=== PATIENT | male | born 1970 | race Caucasian/White ===

== ENCOUNTER 2017-10-30 12:23 | Emergency (ER) | payer OTHER, SELFPAY | END 2017-10-30 14:51 | disposition home or self-care (01) | PROVIDERS: Emergency Provider Nurse Practitioner Family; Family Provider Emergency Medicine; Visit Provider Nurse Practitioner Family | DX: S96.912A Strain of unspecified muscle and tendon at ankle and foot level, left foot, initial encounter (principal); X50.1XXA Overexertion from prolonged static or awkward postures, initial encounter; Y93.39 Activity, other involving climbing, rappelling and jumping off; Y92.89 Other specified places as the place of occurrence of the external cause; Z88.0 Allergy status to penicillin | CPT/HCPCS: 73610; 73630; 99202 ==

== ENCOUNTER → 2020-09-09 17:52 | Outpatient (CLI) | payer OTHER, SELFPAY ==
[2020-09-09 18:54] LABS: Basophils # 0.1 K/mm3 (0-0.2); Eosinophils # 0.4 K/mm3 (0.0-0.4); Eosinophils % 5.5 % (0.1-12.0); Hematocrit 39.7 % (42.0-52.0); Hemoglobin 13.2 g/dL (14.1-18.0); Lymphocytes # 2.3 K/mm3 (0.7-4.5); Mean Corpuscular HGB Conc 33.3 g/dL (31.8-35.4); Mean Corpuscular Hemoglobin 29.3 pg (27.0-31.2); Mean Corpuscular Volume 88.2 fl (80-94); Mean Platelet Volume 9.2 fl (7.4-10.4); Monocytes # 0.5 K/mm3 (0.1-1.0); Monocytes % 5.7 % (1.7-9.3); Neutrophils # 4.6 K/mm3 (1.8-7.8); Neutrophils % 58.8 % (37.0-80.0); Platelet Count 331 K/mm3 (142-424); White Blood Count 7.9 K/mm3 (4.8-10.8)
[2020-09-09 19:10] LABS: Alanine Aminotransferase 16 U/L (12-78); Albumin Level 4.8 g/dl (3.5-5.0); Albumin/Globulin Ratio 1.6 (1.1-1.8); Alkaline Phosphatase 111 U/L (38-126); Anion Gap 13.9 mEq/L (5-15); Aspartate Amino Transferase 29 U/L (17-59); Bilirubin,Total 0.4 mg/dl (0.2-1.3); Blood Urea Nitrogen 15 mg/dl (9-20); Carbon Dioxide 30 mmol/L (22.0-30.0); Chloride 100 mmol/L (98-107); Estimated Glomerular Filt Rate 102 ml/min (>60); GFR (African American) 123 ML/MIN (>60); Glucose 92 mg/dl (74-100); Potassium 3.9 mmoL/L (3.5-5.1); Sodium 140 mmol/L (136-145); Total Protein,Serum 7.8 g/dl (6.3-8.2)
[2020-09-09 19:27] LABS: Free T4 (Free Thyroxine) 0.85 ng/dl (0.78-2.19)
[2020-09-09 19:28] LABS: 25-OH Vitamin D, Total 43.8 ng/mL (30-100)
[2020-09-09 19:41] LABS: Thyroid Stimulating Hormone 1.76 uIU/mL (0.465-4.68)
[2020-09-09 20:31] LABS: Erythrocyte Sedimentation Rate 21 mm/hr (0-20)
[2020-09-11 08:19] LABS: Hep A Ab, IgM Negative (Negative); Hep A Ab, Total Negative (Negative); Hep B Core Ab, Total Negative (Negative)
[2020-09-11 10:31] LABS: Hep B Surface Ab, Qual Non Reactive (.); Hepatitis C Antibody <0.1 s/co ratio (0.0-0.9)
== END ==
PROVIDERS: Visit Provider Emergency Medicine
DX: R53.83 Other fatigue (principal); E55.9 Vitamin D deficiency, unspecified; D64.9 Anemia, unspecified; Z72.0 Tobacco use
CPT/HCPCS: 80053; 82306; 84439; 84443; 85025; 85651; 86704; 86706; 86708; 87380

== ENCOUNTER 2021-07-04 10:57 | Emergency (ER) | payer OTHER, SELFPAY ==
[2021-07-04 10:58] VITALS: BP 161/100; PULSE 78; RESP 16; TEMP 36.8; O2SAT 98; BMI 21.9
--- NOTE | 2021-07-04 11:03 | PC.NURSE ---
Calling conrad olivia due to injuries and circumstances.
--- NOTE | 2021-07-04 11:10 | XR_ITS ---
PROCEDURE INFORMATION: Exam: XR Pelvis Exam date and time: 07/04/2021 11:10 AM Age: 51 years old Clinical indication: Injury or trauma; Fall; Blunt trauma (contusions or hematomas); Bilateral; Pelvic region; Patient HX: Patient fell in [place], trauma alert. TECHNIQUE: Imaging protocol: XR pelvis. Views: 1 or 2 view. COMPARISON: No relevant prior studies available. FINDINGS: Bones/joints: Unremarkable. No acute fracture. Soft tissues: Unremarkable. IMPRESSION: No acute findings.
--- NOTE | 2021-07-04 11:10 | CT_ITS ---
PROCEDURE INFORMATION: Exam: CT Head Without Contrast Exam date and time: 07/04/2021 11:10 AM Age: 51 years old Clinical indication: Injury or trauma; Fall; Blunt trauma (contusions or hematomas); Consciousness not specified; Injury details: Patient fell in [place], trauma TECHNIQUE: Imaging protocol: Computed tomography of the head without contrast. Radiation optimization: All CT scans at this facility use at least one of these dose optimization techniques: automated exposure control; mA and/or kV adjustment per patient size (includes targeted exams where dose is matched to clinical indication); or iterative reconstruction. COMPARISON: No relevant prior studies available. FINDINGS: Brain: No significant acute hemorrhage. Trace extra-axial hemorrhage adjacent to the left parietal fracture may be present. Unremarkable white matter. No mass effect. Cerebral ventricles: No ventriculomegaly. Paranasal sinuses: Visualized sinuses are unremarkable. No fluid levels. Mastoid air cells: Visualized mastoid air cells are well aerated. Orbital cavity: There is dysconjugate gaze. Bones/joints: There is a depressed and comminuted fracture of the right parietal bone. There is intracranial gas adjacent to the parietal bone fracture. Soft tissues: There is left parietal soft tissue swelling and subcutaneous gas. IMPRESSION: 1. Depressed left parietal bone fracture with pneumocephalus. 2. There is no significant focus of acute intracranial hemorrhage or mass effect.
--- NOTE | 2021-07-04 11:10 | XR_ITS ---
PROCEDURE INFORMATION: Exam: XR Chest Exam date and time: 07/04/2021 11:10 AM Age: 51 years old Clinical indication: Injury or trauma; Fall; Blunt trauma (contusions or hematomas); Patient HX: Patient fell in [place], trauma. TECHNIQUE: Imaging protocol: XR of the chest. Views: 1 view. COMPARISON: CT CERVICAL SPINE WO CON 07/04/2021 12:03 PM FINDINGS: Lungs: Unremarkable. No consolidation. Pleural spaces: Unremarkable. No pleural effusion. No pneumothorax. Heart/Mediastinum: Unremarkable. No cardiomegaly. Bones/joints: Unremarkable. IMPRESSION: No acute findings.
--- NOTE | 2021-07-04 11:10 | CT_ITS ---
PROCEDURE INFORMATION: Exam: CT Cervical Spine Without Contrast Exam date and time: 07/04/2021 11:10 AM Age: 51 years old Clinical indication: Injury or trauma; Fall; Blunt trauma; Injury details: Patient fell in [place], trauma. TECHNIQUE: Imaging protocol: Computed tomography images of the cervical spine without contrast. Radiation optimization: All CT scans at this facility use at least one of these dose optimization techniques: automated exposure control; mA and/or kV adjustment per patient size (includes targeted exams where dose is matched to clinical indication); or iterative reconstruction. COMPARISON: CT HEAD/BRAIN WO CON 07/04/2021 12:01 PM FINDINGS: Bones/joints: There is a 28 degree levoscoliosis. There is no subluxation. There is a nondisplaced fracture of the left lateral mass of C2 (23/3). There is rotation of C1 upon C2 without subluxation. Discs/Spinal canal/Neural foramina: There is loss of disc space height throughout most focally at C5-C6, related to degenerative disc disease. Thyroid: Thyroid is lobulated and slightly enlarged. Lungs: There is centrilobular emphysematous change in the lung apices. Vasculature: There is atherosclerotic disease of carotid arteries not fully assessed. Soft tissues: Unremarkable. IMPRESSION: 1. Nondisplaced fracture left lateral at mass C2. 2. Rotation of C1 on C2 without widening of the pre dens space. Continued clinical follow-up recommended. If an injury to the transverse ligament is suspected, a follow-up MRI is recommended.
--- NOTE | 2021-07-04 11:13 | PC.NURSE ---
CPD at bedside
--- NOTE | 2021-07-04 11:28 | PC.NURSE ---
BLEEDING CONTROLLED IN ED TRIAGE FOR PATIENT
[2021-07-04 11:33] VITALS: BP 142/92; PULSE 73; O2SAT 100
--- NOTE | 2021-07-04 11:36 | PC.NURSE ---
Assisted MD in cleaning and dressing wound. C-Collar appropriately applied and pt states that his chin feels like it is bruised as well.
[2021-07-04 11:51] VITALS: BP 150/92; PULSE 73; RESP 13; O2SAT 100
[2021-07-04 11:54] LABS: Basophils # 0.1 K/mm3 (0-0.2); Basophils % 0.5 % (0.1-2.0); Eosinophils # 0.1 K/mm3 (0.0-0.4); Eosinophils % 1.2 % (0.1-12.0); Hematocrit 41.1 % (42.0-52.0); Hemoglobin 13.4 g/dL (14.1-18.0); Lymphocytes # 1.4 K/mm3 (0.7-4.5); Lymphocytes % 15.5 % (10-50); Mean Corpuscular HGB Conc 32.6 g/dL (31.8-35.4); Mean Corpuscular Hemoglobin 28.7 pg (27.0-31.2); Mean Corpuscular Volume 88.1 fl (80-94); Mean Platelet Volume 8.1 fl (7.4-10.4); Monocytes # 0.4 K/mm3 (0.1-1.0); Neutrophils # 7.3 K/mm3 (1.8-7.8); Neutrophils % 78.8 % (37.0-80.0); POC Glucose,Bedside 122 (70-110); Platelet Count 288 K/mm3 (142-424); Red Blood Count 4.66 M/mm3 (4.60-6.20); Red Cell Distribution Width 13.9 % (11.5-17.5); White Blood Count 9.3 K/mm3 (4.8-10.8)
[2021-07-04 11:59] LABS: Chloride 103 mmol/L (98-107)
[2021-07-04 12:00] LABS: Potassium 4.3 mmoL/L (3.5-5.1); Sodium 140 mmol/L (136-145)
--- NOTE | 2021-07-04 12:01 | PC.NURSE ---
Pt with rad
[2021-07-04 12:02] LABS: Blood Urea Nitrogen 15 mg/dl (9-20); Creatinine Clearance Estimated 67 mL/min (50-200); Estimated Glomerular Filt Rate 78 ml/min (>60); GFR (African American) 95 ML/MIN (>60)
[2021-07-04 12:03] LABS: Alanine Aminotransferase 15 U/L (12-78); Albumin Level 4.5 g/dl (3.5-5.0); Albumin/Globulin Ratio 1.5 (1.1-1.8); Alkaline Phosphatase 99 U/L (38-126); Anion Gap 12.3 mEq/L (5-15); Aspartate Amino Transferase 27 U/L (17-59); Bilirubin,Total 0.3 mg/dl (0.2-1.3); Calcium 9.2 mg/dl (8.4-10.2); Carbon Dioxide 29 mmol/L (22.0-30.0); Globulin 3.1 g/dL (1.3-3.2); Glucose 125 mg/dl (74-100); Total Protein,Serum 7.6 g/dl (6.3-8.2)
--- NOTE | 2021-07-04 12:12 | [facility].EDGENADL ---
ED Disposition Clinical Impression: Open skull fracture Qualifiers: Encounter type: initial encounter Skull bone/location: parietal bone Qualified Code(s): S02.0XXB - Fracture of vault of skull, initial encounter for open fracture C2 cervical fracture Qualifiers: Encounter type: initial encounter Fracture type: closed Fracture morphology: other fracture Fracture alignment: nondisplaced Qualified Code(s): S12.191A - Other nondisplaced fracture of second cervical vertebra, initial encounter for closed fracture Concussion with loss of consciousness Qualifiers: Encounter type: initial encounter Qualified Code(s): S06.0X9A - Concussion with loss of consciousness of unspecified duration, initial encounter Disposition: Xfer Critical Access Hosp Condition on Discharge: Critical Referrals: Rashad Coles MD [Primary Care Provider] - - Critical Care Critical Care Time: No Attestation: On 07/04/21, the high probability of a clinically significant, sudden or life threatening deterioration of the following system(s) required my full and direct attention, intervention and personal management. The time I documented below is in addition to time spent performing reported procedures but includes the following listed in this critical care notation. Medical Decision Making - Medical Records Medical records reviewed: Yes: I reviewed the patient's medical records. - Steven Inquiry Pt receiving controlled substance: No Vital Signs: 07/04/21 10:58 07/04/21 11:33 Temperature 98.2 F Temperature Source Oral Pulse Rate 73 Pulse Rate [Right] 78 Respiratory Rate 16 Blood Pressure 142/92 H Blood Pressure [Right Arm] 161/100 H Blood Pressure Mean [Right Arm] 120 02 Sat by Pulse Oximetry 98 100 Oxygen Delivery Method Room Air - Lab Data Lab Results 07/04/21 11:40: WBC 9.3, RBC 4.66, Hgb 13.4 L, Hct 41.1 L, MCV 88.1, MCH 28.7, MCHC 32.6, RDW 13.9, Plt Count 288, MPV 8.1, Neut % (Auto) 78.8, Lymph % (Auto) 15.5, Gaston % (Auto) 4.0, Eos % (Auto) 1.2, Baso % (Auto) 0.5, Neut # (Auto) 7.3, Lymph # (Auto) 1.4, Gaston # (Auto) 0.4, Eos # (Auto) 0.1, Baso # (Auto) 0.1 07/04/21 11:40: Sodium 140, Potassium 4.3, Chloride 103, Carbon Dioxide 29, Anion Gap 12.3, BUN 15, Creatinine 1.00, Estimated Creat Clear 67, Estimated GFR 78, Est GFR ( Amer) 95, Glucose 125 H, Calcium 9.2, Total Bilirubin 0.3, AST 27, ALT 15, Alkaline Phosphatase 99, Total Protein 7.6, Albumin 4.5, Globulin 3.1, Albumin/Globulin Ratio 1.5 07/04/21 11:40: Plasma/Serum Alcohol < 10 07/04/21 11:40: POC Glucose 122 H Result diagrams: 07/04/21 11:40 07/04/21 11:40 - Radiology Data #1 Image(s): Chest, Pelvis Image Reviewed: Yes I reviewed the patient's radiology results, Yes I reviewed the patient's radiology image, Yes I have reviewed radiologist's interpretation Preliminary Findings: Normal/NAD - CT Data CT Scan: Head, C-Spine Time Received: 12:[address] Reviewed: Yes: I have reviewed the patient's CT results, I have viewed the radiologist's interpretation Findings Narrative: IMPRESSION: 1. Depressed left parietal bone fracture with pneumocephalus. 2. There is no significant focus of acute intracranial hemorrhage or mass effect. IMPRESSION: 1. Nondisplaced fracture left lateral at mass C2. 2. Rotation of C1 on C2 without widening of the pre dens space. Continued clinical follow-up recommended. If an injury to the transverse ligament is suspected, a follow-up MRI is recommended. - Reevaluation(s) Time: 12:59 Reevaluation #1: On reevaluation, patient does appear to be neurologically intact. There is no significant active bleeding. Patient does have evidence of an open skull fracture. Patient also has a cervical C2 fracture. Patient maintained in cervical spine precautions. I did speak with trauma surgery as well as neurosurgery at [facility]. They were notified about the patient. They have accepted transfer. Patient b
[2021-07-04 12:23] LABS: Ethyl Alcohol < 10 mg/dl (0-10)
[2021-07-04 12:30] VITALS: BP 167/106; RESP 24
[2021-07-04 13:00] VITALS: BP 149/99; PULSE 82; RESP 15
--- NOTE | 2021-07-04 13:01 | PC.NURSE ---
Pt accepted at ER by Dr Snyder. [facility] being called at this time per request.
--- NOTE | 2021-07-04 13:17 | PC.NURSE ---
Dispatcher Connor from [facility] aware of patient's case and stated a assistant real estate manager will see patient at ED when patient arrives
--- NOTE | 2021-07-04 13:31 | PC.NURSE ---
Patient report given to Lu ACOSTA at this time at
[2021-07-04 13:55] VITALS: BP 149/94; PULSE 91; RESP 18; TEMP 36.9; O2SAT 97
--- NOTE | 2021-07-04 13:56 | PC.NURSE ---
Patient's belongings including an unknown amount of matias given to patient's mother per patient request
== END 2021-07-04 14:42 | disposition critical access hospital (66) ==
PROVIDERS: Emergency Provider Emergency Medicine; PCP Emergency Medicine
DX: S06.0X9A Concussion with loss of consciousness of unspecified duration, initial encounter (principal); S02.0XXB Fracture of vault of skull, initial encounter for open fracture; S01.01XA Laceration without foreign body of scalp, initial encounter; S12.191A Other nondisplaced fracture of second cervical vertebra, initial encounter for closed fracture; W18.39XA Other fall on same level, initial encounter; Y92.018 Other place in single-family (private) house as the place of occurrence of the external cause; F17.210 Nicotine dependence, cigarettes, uncomplicated; Z23 Encounter for immunization
CPT/HCPCS: 70450; 71045; 72125; 72170; 80053; 82962; 85025; 90715; 99283

== ENCOUNTER → 2022-07-01 10:07 | Outpatient (CLI) | payer OTHER, SELFPAY ==
--- NOTE | 2022-07-01 | MR_ITS ---
FINAL REPORT CLINICAL HISTORY: TBI FINDINGS: Multiplanar MR imaging of the cervical spine was performed without contrast. On the sagittal T2-weighted images, disc degeneration is seen throughout. There is mild kyphosis at C5-6. There is endplate changes C5-6 and C6-7. There is no evidence of fracture. The vertebral alignment is normal. The cervical spinal cord has an unremarkable appearance without evidence of mass, edema or syrinx. The cervicomedullary junction is normal. C2-3: Uncovertebral osteophytes are present with mild left neural foraminal narrowing. C3-4: Disc osteophyte complex is present with moderate bilateral neural foraminal narrowing. There is mild central canal stenosis with an AP diameter of the thecal sac of 8 mm. C4-5: An annular bulge and uncovertebral osteophytes are present. There is mild left neural foraminal narrowing. C5-6: Disc osteophyte complex is present with severe right and mild left neural foraminal narrowing. There is mild central canal stenosis with an AP diameter of the thecal sac of 9 mm. C6-7: Disc osteophyte complex is present with severe right and moderate left neural foraminal narrowing. C7-T1: There is no significant canal stenosis or neural foraminal narrowing. T1-2: There is no significant canal stenosis or neural foraminal narrowing. IMPRESSION: Multilevel degenerative disc disease and spondylosis with mild central canal stenosis at C3-4 and C5-6. Reviewed, Interpreted and Dictated by John Collins III, MD Transcribed by Radha Gudino Authenticated and [facility]
--- NOTE | 2022-07-01 | MR_ITS ---
FINAL REPORT CLINICAL HISTORY: TBI FINDINGS: Multiplanar MR imaging of the brain was performed without and with contrast. Motion artifact is identified on many of the images. There is no evidence of intracranial hemorrhage or mass. No abnormal extra-axial fluid collection is seen. The ventricular size is within normal limits. There is no evidence of shift of the midline structures. The posterior fossa and brainstem have an unremarkable appearance. No area of abnormal restricted diffusion is identified. No abnormal contrast enhancement is seen. Normal major vessel vascular flow voids are noted. There is mild mucosal thickening of the sinuses. IMPRESSION: No acute intracranial abnormality identified. Reviewed, Interpreted and Dictated by John Collins III, MD Transcribed by Radha Gudino Authenticated and [facility]
== END ==
PROVIDERS: PCP Emergency Medicine; Visit Provider Neurological Surgery
DX: Z98.890 Other specified postprocedural states (principal); S02.91XD Unspecified fracture of skull, subsequent encounter for fracture with routine healing; S02.0XXB Fracture of vault of skull, initial encounter for open fracture
CPT/HCPCS: 70553; 72141; 76376; A9576